=== PATIENT | female | born 1990 | race Caucasian/White ===

== ENCOUNTER 2017-05-14 12:13 | Emergency (ER) | payer OTHER ==
[2017-05-14 12:35] VITALS: O2SAT 96
[2017-05-14] MEDS ORDERED: TDAP ADULT 0.5 ML INJ (BOOSTRIX) IM ONE (13:42)
--- NOTE | 2017-05-14 13:46 | EDPHY ---
H & P Time Seen by Provider: 05/14/17 12:36 HPI/ROS: CC: dog bite HPI: This 26-year-old female with no significant past medical history presents to emergency department today with complaints of a dog bite to her right shoulder which happened yesterday. A friend of her roommate was coming to visit and they were all going to go hiking. The friend had their young dog in the back of a car and when the patient went to get in the back of the car the dog jumped out and lunged at her scraping his teeth over the skin of her right shoulder. There was really no significant break in the skin but her muscles feel bruised. She has been putting a CBD salve on her skin and she thinks it already looks better. She is mainly here because the muscles in her shoulder are sore. A police report was filed. The dog's shots are current. The patient does not think her tetanus immunization is current. REVIEW OF SYSTEMS: Constitutional: No fever, no chills. Eyes: No discharge. ENT: No sore throat. Respiratory: No cough, no shortness of breath. Cardiac: No chest pain, no palpitations. Gastrointestinal: No abdominal pain, no vomiting. Genitourinary: No hematuria. Musculoskeletal: No back pain. Skin: Abrasions right shoulder. Neurological: No headache. Past Medical/Surgical History: PMH: Denied PSH: Knee reconstruction, ear tubes Allergy: PCN (?rash) Meds: none No PCP in the area Social History: Denies tobacco products; Rare ETOH; no marijuana use Smoking Status: Never smoked Physical Exam: General Appearance: Alert, no distress. Eyes: Pupils equal and round no pallor or injection. ENT, Mouth: Mucous membranes are moist. Respiratory: There are no retractions, lungs are clear to auscultation. Cardiovascular: Regular rate and rhythm. Gastrointestinal: Abdomen is soft and nontender, no masses, bowel sounds normal. Neurological: Awake and alert, sensory and motor exams grossly normal. Skin: Warm and dry; approximately 10cm abrasion (erythema) on posterior left shoulder. No puncture wounds, no significant break in skin. No point specific tenderness. No sign of secondary infection. Musculoskeletal: Neck is supple nontender. Extremities are symmetrical, full range of motion. Psychiatric: Patient is oriented X 3, there is no agitation. DIFFERENTIAL DIAGNOSIS: After history and physical exam differential diagnosis was considered for but not limited to: dog bite, cellulitis (unlikely), retained foreign body (unlikely). Constitutional: Initial Vital Signs Temperature (C) 97.9 F 05/14/17 12:28 Heart Rate 76 05/14/17 12:28 Respiratory Rate 16 05/14/17 12:28 Blood Pressure 117/72 05/14/17 12:28 O2 Sat (%) 96 05/14/17 12:28 O2 Delivery Mode Room Air Allergies/Adverse Reactions: Penicillins Allergy (Verified 05/14/17 12:35) Home Medications: Medication Instructions Recorded Cephalexin 500 mg PO QID 7 Days #28 tablet 05/14/17 Medical Decision Making ED Course/Re-evaluation: The patient was seen and examined. Vital signs were reviewed. Her tetanus was updated. There is no sign of a puncture wound or retained foreign body in there for an x-ray was discussed with the patient but declined. She was given a prescription for Keflex to start only if the wound becomes more erythematous as currently it does not look infected after 48 hours. She will follow up with a primary care provider if her shoulder discomfort persists or return to the emergency room sooner if symptoms change or worsen as discussed. - Data Points Medications Given: Discontinued Medications Diphtheria/Tetanus/Acell Pertussis (Boostrix) 0.5 ml IM .ONCE ONE Stop: 05/14/17 13:43 Last Admin: 05/14/17 14:03 Dose: 0.5 ml Departure - Departure Disposition: Home, Routine, Self-Care Clinical Impression: Dog bite Qualifiers: Encounter type: initial encounter Qualified Code(s): W54.0XXA - Bitten by dog, initial encounter Condition: Good Instructions: Animal Bite (ED) Additional Instructions: Only start the antibiotic if increased redness, red streaks, fever etc. Follow up with a primary care provider if pain shoulder discomfort persists. Return to the ER if any signs of infection or any further problems or concerns as discussed. Referrals: ARSEN DUARTE [Other] - As per Instructions Prescriptions: Cephalexin 500 mg PO QID 7 Days #28 tablet
[2017-05-14 14:00] VITALS: BP 115/68; PULSE 74; RESP 18; TEMP 98
== END 2017-05-14 13:59 | disposition home or self-care (01) ==
LOC: CED 12:13
DX: S41.051A Open bite of right shoulder, initial encounter (principal); Z23 Encounter for immunization; W54.0XXA Bitten by dog, initial encounter